=== PATIENT | female | born 1965 | race African-American/Black ===

== ENCOUNTER 2020-07-05 10:03 | Inpatient (IN) | payer MEDICARE, MEDICAID ==
[~2020-07-05] VITALS: Ht 167.6 cm; Wt 99.8 kg
[~2020-07-05 10:03] MED LIST: FERR325T23 PO; XAR15 PO
[2020-07-05] MEDS ORDERED: CLOZ25TA4 PO (10:07)
[2020-07-05] MEDS ORDERED: METF-815 PO (10:07)
[2020-07-05] MEDS ORDERED: HAL1 GT (10:07)
[2020-07-05] MEDS ORDERED: SODIUM CHLORIDE 0.9% 1,000 ML IV ONE (10:19)
[2020-07-05] MEDS ORDERED: ONDANSETRON HCL 4MG/2ML INJ IV ONE (10:30)
[2020-07-05 11:07] LABS: BASOPHILS % 0.8 % (0.0-2.0); EOSINOPHILS % 1.3 % (0.0-5.0); HEMATOCRIT. 39.7 % (36.0-48.0); HEMOGLOBIN. 12.7 g/dL (12.0-16.0); LYMPHOCYTES % 32.1 % (20.0-50.0); MEAN CORPUSCULAR HEMOGLOBIN 25.6 pg (28.0-32.0); MEAN CORPUSCULAR VOLUME 79.8 fL (81.0-99.0); MEAN PLATELET VOLUME 8.8 fl (7.4-10.4); MONOCYTES % 4.1 % (2.0-8.0); NEUTROPHILS % 61.7 % (40.0-76.0); PLATELET 246 x1000/uL (130-400); RED BLOOD CELL COUNT 4.98 mill/uL (4.2-5.4)
[2020-07-05 11:11] LABS: CHLORIDE 111 mEq/L (98-107)
[2020-07-05 11:20] LABS: ETHANOL BLOOD < 10 mg/dL
[2020-07-05] MEDS ORDERED: PIPERACILLIN/TAZ 3.375G PREMIX 50 ML IV ONE (12:15)
[2020-07-05] MEDS ORDERED: ASPIRIN 81MG TABLET PO ONE (12:15)
[2020-07-05] MEDS ORDERED: VANCOMYCIN 1 G PREMIX 200 ML IV ONE (12:15)
[2020-07-05 12:21] LABS: CLARITY URINE CLEAR (CLEAR); COLOR URINE YELLOW (YELLOW); KETONES URINE NEGATIVE (NEGATIVE); LEUKOCYTE ESTERASE URINE 1+ (NEGATIVE); NITRITE URINE NEGATIVE (NEGATIVE); OCCULT BLOOD URINE NEGATIVE (NEGATIVE); PH URINE 6.5 (4.5-8.0); PROTEIN URINE NEGATIVE (NEGATIVE); SPECIFIC GRAVITY URINE 1.011 (1.005-1.030); UROBILINOGEN URINE 0.2 E.U./dL (0.2-1.0)
[2020-07-05 12:22] LABS: INR 1.1; PARTIAL THROMBOPLASTIN TIME 23.1 sec (23.4-31.0); PROTHROMBIN TIME 11.2 sec (9.6-11.0)
[2020-07-05 13:03] LABS: *AMPHETAMINES SCREEN URINE NEGATIVE (NEGATIVE)
[2020-07-05 13:04] LABS: *BARBITURATES SCREEN URINE NEGATIVE (NEGATIVE); *BENZODIAZEPINES SCREEN URINE NEGATIVE (NEGATIVE); *COCAINE SCREEN URINE NEGATIVE (NEGATIVE); CANNABINOID URINE SCREEN NEGATIVE (NEGATIVE); METHADONE URINE SCREEN NEGATIVE (NEGATIVE); OPIATES URINE SCREEN NEGATIVE (NEGATIVE); PHENCYCLIDINE URINE SCREEN NEGATIVE (NEGATIVE)
[2020-07-05] MEDS ORDERED: ENOXAPARIN 40MG/0.4ML SYR SUBCUT SCH (15:15)
[2020-07-05] MEDS ORDERED: IPRATROPIUM/ALBUTEROL 0.5-3(2.5)MG/3ML NEB NEB PRN (15:15)
[2020-07-05] MEDS ORDERED: CLONIDINE 0.1MG TABLET PO PRN (15:15)
[2020-07-05] MEDS ORDERED: ACETAMINOPHEN 325MG TABLET PO PRN (15:15)
[2020-07-05] MEDS ORDERED: HYDROCODONE/ACETAMINOPHEN 5/325MG TABLET PO PRN (15:15)
[2020-07-05] MEDS ORDERED: LORAZEPAM 2MG/ML CPJ IV PRN (15:15)
[2020-07-05] MEDS ORDERED: MORPHINE SULFATE 2 MG/ML CPJ (NOT FOR IM USE) IV PRN (15:15)
[2020-07-05] MEDS ORDERED: GUAIFENESIN 200MG/10ML SUGAR FREE UDC PO PRN (15:15)
[2020-07-05] MEDS ORDERED: MAGNESIUM/ALUMINUM HYDROXIDE/SIMETHICONE 30ML UDC PO PRN (15:15)
[2020-07-05] MEDS ORDERED: NA PHOS,M-B/NA PHOS,DI-BA ENEMA 118ML PR PRN (15:15)
[2020-07-05] MEDS ORDERED: DOCUSATE SODIUM 100MG CAPSULE PO PRN (15:15)
[2020-07-05] MEDS ORDERED: ONDANSETRON HCL 4MG/2ML INJ IV PRN (15:15)
[2020-07-05] MEDS ORDERED: DIPHENHYDRAMINE 50MG/ML VIAL IV PRN (15:15)
[2020-07-05 15:22] VITALS: BP 155/92
[2020-07-05 16:00] VITALS: BP 140/70
[2020-07-05] MEDS: SODIUM CHLORIDE 0.45% 1,000 ML IV SCH (16:27)
[2020-07-05] MEDS ORDERED: DEXTROSE 50% WATER 50ML SYRINGE IV PRN (17:00)
[2020-07-05] MEDS: BLOOD SUGAR DIAGNOSTIC STRIP TEST SCH ×2 (17:59→21:04)
[2020-07-05] MEDS: INSULIN LISPRO 100 UNITS/ML SUBCUT SCH ×2 (18:00→21:19)
[2020-07-05] MEDS: AZITHROMYCIN 500 MG in DEXT 5% WATER 250 ML IV SCH (18:02)
[2020-07-05 20:34] LABS: CHLORIDE 114 mEq/L (98-107)
[2020-07-05 20:36] VITALS: BP 128/83
[2020-07-05] MEDS: ENOXAPARIN 30MG/0.3ML SYR SUBCUT SCH (21:26)
[2020-07-05 22:00] VITALS: BP 126/75
[2020-07-06] VITALS: BP 126/75
[2020-07-06 07:12] VITALS: BP 122/84
[2020-07-06] MEDS: INSULIN LISPRO 100 UNITS/ML SUBCUT SCH ×4 (07:15→21:00)
[2020-07-06] MEDS: BLOOD SUGAR DIAGNOSTIC STRIP TEST SCH ×4 (07:17→21:18)
[2020-07-06] MEDS: ASPIRIN 81MG EC TABLET PO SCH (08:59)
[2020-07-06] MEDS: ENOXAPARIN 30MG/0.3ML SYR SUBCUT SCH (08:59)
[2020-07-06] MEDS: SODIUM CHLORIDE 0.45% 1,000 ML IV SCH (09:00)
[2020-07-06 09:33] LABS: BASOPHILS % 0.8 % (0.0-2.0); EOSINOPHILS % 1.7 % (0.0-5.0); HEMATOCRIT. 39.5 % (36.0-48.0); HEMOGLOBIN. 12.5 g/dL (12.0-16.0); LYMPHOCYTES % 28.4 % (20.0-50.0); MEAN CORPUSCULAR HEMOGLOBIN 25.2 pg (28.0-32.0); MEAN CORPUSCULAR VOLUME 79.7 fL (81.0-99.0); MEAN PLATELET VOLUME 8.8 fl (7.4-10.4); MONOCYTES % 4.6 % (2.0-8.0); NEUTROPHILS % 64.5 % (40.0-76.0); PLATELET 277 x1000/uL (130-400); RED BLOOD CELL COUNT 4.95 mill/uL (4.2-5.4); RED CELL DISTRIBUTION WIDTH 16.8 % (11.6-14.6)
[2020-07-06 11:06] LABS: CHLORIDE 115 mEq/L (98-107)
[2020-07-06 11:13] LABS: LDL CHOLESTEROL 139 mg/dL (5-100)
[2020-07-06 11:14] LABS: HDL CHOLESTEROL 29 mg/dL (40-59)
[2020-07-06 11:15] LABS: T4 FREE 1.16 ng/dL (0.76-1.46)
[2020-07-06 12:00] VITALS: BP 126/80
[2020-07-06] MEDS ORDERED: RIVAROXABAN 15 MG TABLET PO SCH (17:15)
[2020-07-06] MEDS: RIVAROXABAN 20 MG TABLET PO SCH (18:12)
[2020-07-06] MEDS: AZITHROMYCIN 500 MG in DEXT 5% WATER 250 ML IV SCH (18:14)
[2020-07-06 20:00] VITALS: BP 127/68
[2020-07-06] MEDS: HALOPERIDOL 0.5MG TABLET PO SCH (21:23)
[2020-07-07] VITALS: BP 107/70
[2020-07-07] MEDS: SODIUM CHLORIDE 0.45% 1,000 ML IV SCH ×2 (00:34→16:56)
[2020-07-07 04:00] VITALS: BP 118/77
[2020-07-07] MEDS: BLOOD SUGAR DIAGNOSTIC STRIP TEST SCH ×4 (06:24→21:00)
[2020-07-07] MEDS: INSULIN LISPRO 100 UNITS/ML SUBCUT SCH ×4 (06:24→21:00)
[2020-07-07 08:00] VITALS: BP 125/72
[2020-07-07] MEDS: AZITHROMYCIN 500 MG TABLET PO SCH (08:14)
[2020-07-07] MEDS: ASPIRIN 81MG EC TABLET PO SCH (08:14)
[2020-07-07] MEDS ORDERED: LIDOCAINE HCL 1% 20ML VIAL (Pyxis) INJ ONE (09:52)
[2020-07-07] MEDS ORDERED: SODIUM BICARBONATE 4% (2.4MEQ) 5ML VIAL IV ONE (09:52)
[2020-07-07] MEDS ORDERED: IOHEXOL-350 100 ML BOTTLE ONE (11:53)
[2020-07-07 12:00] VITALS: BP 126/73
[2020-07-07 16:00] VITALS: BP 135/67
[2020-07-07] MEDS: RIVAROXABAN 20 MG TABLET PO SCH (16:55)
[2020-07-07] MEDS: CLOZAPINE 25MG TABLET PO SCH (16:55)
[2020-07-07 20:00] VITALS: BP 132/77
[2020-07-07] MEDS: HALOPERIDOL 0.5MG TABLET PO SCH (22:03)
[2020-07-08] VITALS: BP 115/63
[2020-07-08 04:00] VITALS: BP 117/71
[2020-07-08] MEDS: BLOOD SUGAR DIAGNOSTIC STRIP TEST SCH ×2 (06:29→11:30)
[2020-07-08] MEDS: INSULIN LISPRO 100 UNITS/ML SUBCUT SCH ×2 (06:30→11:30)
[2020-07-08 08:00] VITALS: BP 113/63
[2020-07-08] MEDS: CLOZAPINE 25MG TABLET PO SCH (08:10)
[2020-07-08] MEDS: ASPIRIN 81MG EC TABLET PO SCH (08:10)
[2020-07-08] MEDS: AZITHROMYCIN 500 MG TABLET PO SCH (08:10)
[2020-07-08] MEDS: SODIUM CHLORIDE 0.45% 1,000 ML IV SCH (09:08)
[2020-07-08 12:00] VITALS: BP 124/66
[2020-07-08 12:41] VITALS: BP 124/66
== END 2020-07-08 13:50 | disposition home or self-care (01) | DRG 194 ==
LOC: ER 10:03 → 7WST 12:49 → ENRESERV 13:50 → 7WST 15:39 → 5WST 23:03 → 7WST 23:06 → 5WST 07-06 00:15
PROVIDERS: ADMIT Internal Medicine; ATTEND Internal Medicine
PROC: 02HV33Z Insertion of Infusion Device into Superior Vena Cava, Percutaneous Approach (ICD-10-PCS; principal; 2020-07-07)
PROC: B548ZZA Ultrasonography of Superior Vena Cava, Guidance (ICD-10-PCS; 2020-07-07)
PROC: B5181ZA Fluoroscopy of Superior Vena Cava using Low Osmolar Contrast, Guidance (ICD-10-PCS; 2020-07-07)
DX: J18.9 Pneumonia, unspecified organism (principal); E87.2 Acidosis; E87.5 Hyperkalemia; E11.9 Type 2 diabetes mellitus without complications; I25.10 Atherosclerotic heart disease of native coronary artery without angina pectoris; F20.9 Schizophrenia, unspecified; I10 Essential (primary) hypertension; Z78.9 Other specified health status; Z79.01 Long term (current) use of anticoagulants; Z79.82 Long term (current) use of aspirin; Z79.84 Long term (current) use of oral hypoglycemic drugs; Z86.711 Personal history of pulmonary embolism; Z86.718 Personal history of other venous thrombosis and embolism; Z03.818 Encounter for observation for suspected exposure to other biological agents ruled out; Z79.899 Other long term (current) drug therapy
CPT/HCPCS: 36415; 36573; 71045; 71275; 76937; 80048; 80053; 80061; 80305; 80307; 80320; 80329; 81003; 82962; 83036; 83605; 83880; 84439; 84443; 84484; 85025; 93005; 93970; 99291; C1725; J0456; J1650; J1815; J2405; J2543; J3370; J3490; J7030; J7060; L8514; Q9967; G0480; U0003-CS